=== PATIENT | female | born 1950 | race Caucasian/White ===

== ENCOUNTER → 2017-10-29 | Outpatient (CLI) | payer MEDICARE ==
--- NOTE | 2017-10-30 10:34 | US ---
EXAM DESCRIPTION: Breast,Bilateral: Ultrasound. CLINICAL HISTORY: 67 yearsFemaleBREAST LUMP lateral left breast. Recent weight loss of 70 pounds. COMPARISON: Digital 3-D tomosynthesis diagnostic mammography bilateral breasts on this visit. TECHNIQUE: Transcutaneous scanning of the bilateral breast utilizing two-dimensional and Doppler modes. Scanning performed by the chemist intern and Dr. Groves. FINDINGS: Scanning at the 1200 clock position of the retroareolar right breast shows hypoechoic elongated fatty density material. This is also seen in the right breast at the 1100 clock position 3 cm from the nipple. These masses demonstrate parallel orientation with no significant posterior shadowing features. Margins are not well-defined. Notable when scanning is the increased mobility of this tissue with transducer pressure. These tissues are not hyper vascular. No discrete cyst in the right breast upper outer quadrant. No abnormal solid mass with antiparallel orientation or posterior shadowing. No large calcifications or parenchymal edema. No skin changes. Left breast scanning at the 300 clock position 3 cm from the nipple. Tissue corresponding to skin marker and palpation appears similar to the hypoechoic tissue in the right breast. Partially defined margins, parallel orientation, and mixed posterior acoustic features, with no significant posterior shadowing. As was noted in the right breast, this tissue demonstrates increased mobility with transducer pressure. Tissues are not hypervascular. Similar appearance of tissue in the retroareolar left breast at the 1200 clock position. No discrete cyst or abnormal distinct solid mass with no abnormal posterior shadowing or vascularity in the scanned regions of the left breast. Increased mobility of tissue with transducer pressure. No large calcifications parenchymal edema or skin changes. IMPRESSION: 1. Bi-Rads Category 3: Probably Benign Findings. 2. Please refer to bilateral 3-D tomosynthesis diagnostic mammographic examination and report on this visit. The FINDINGS and the FOLLOW-UP plan were reviewed in person with the patient after the examination. Written communication explaining the IMPRESSION and FOLLOW-UP will be mailed to the patient and referring care provider. Electronically signed by: Jamey Groves MD 10/30/2017 10:33 AM CDT
--- NOTE | 2017-10-30 10:38 | MAM ---
EXAM DESCRIPTION: Diagnostic Mammo,Bilateral: Digital Mammography CLINICAL HISTORY: 67 yearsFemaleBREAST MASS left lateral breast. 70 lb weight loss. Postmenopausal/hysterectomy. No HRT. COMPARISON: Targeted bilateral breast ultrasound following this examination. No prior reports available. TECHNIQUE: Bilateral CC LM MLO projection full-field images, 3-D tomosynthesis digital mammographic technique. Also bilateral synthesized CC MLO LM full-field images. CC and MLO and LM 2-D digital mammograms left breast. CAD utilized on 2-D images. Skin marker on the lateral left breast middle third at the 300 clock position where mass is palpable. FINDINGS: The breast parenchymal density pattern is: Extremely dense breast tissue, which lowers the sensitivity of mammography. No skin thickening or nipple retraction masslike region noted in the retroareolar left breast associated with microcalcifications. Where the skin markers located, is a approximately 2.5 x 2.5 cm mass with similar density as retroareolar tissue both masses are partially well-defined margins. Similar density to the diffuse fibroglandular breast parenchyma in the breast. The denser masslike areas in the right breast are similar to those in the left breast and are located predominantly in the upper outer quadrant and retroareolar right breast and in the anterior and middle third more than the posterior third. Scattered microcalcifications are noted. ULTRASOUND: Scanning at the 1200 clock position of the retroareolar right breast shows hypoechoic elongated fatty density material. This is also seen in the right breast at the 1100 clock position 3 cm from the nipple. These masses demonstrate parallel orientation with no significant posterior shadowing features. Margins are not well-defined. Notable when scanning is the increased mobility of this tissue with transducer pressure. These tissues are not hyper vascular. No discrete cyst in the right breast upper outer quadrant. No abnormal solid mass with antiparallel orientation or posterior shadowing. No large calcifications or parenchymal edema. No skin changes. Left breast scanning at the 300 clock position 3 cm from the nipple. Tissue corresponding to skin marker and palpation appears similar to the hypoechoic tissue in the right breast. Partially defined margins, parallel orientation, and mixed posterior acoustic features, with no significant posterior shadowing. As was noted in the right breast, this tissue demonstrates increased mobility with transducer pressure. Tissues are not hypervascular. Similar appearance of tissue in the retroareolar left breast at the 1200 clock position. Increased mobility of this tissue with transducer pressure. No discrete cyst or abnormal distinct solid mass with abnormal posterior shadowing or vascularity in the scanned regions of the left breast. No large calcifications parenchymal edema or skin changes. Appearance of these tissues bilaterally and increased mobility of the tissues with transducer pressure would suggest these are lipomas.. IMPRESSION: BI-RADS CATEGORY: 3 - PROBABLY BENIGN. Management: Short interval (6-month) follow-up digital mammography, and possibly targeted bilateral breast ultrasound follow-up. The FINDINGS and the FOLLOW-UP plan were reviewed in person with the patient after the examination. Written communication explaining the IMPRESSION and FOLLOW-UP will be mailed to the patient and referring care provider. Electronically signed by: Jamey Groves MD 10/30/2017 10:37 AM CDT
== END | disposition home or self-care (01) ==
LOC: MAMMO 14:48
PROVIDERS: ATTEND Surgery
DX: N63.21 Unspecified lump in the left breast, upper outer quadrant (principal)

== ENCOUNTER → 2018-08-30 | Outpatient (CLI) | payer MEDICARE ==
--- NOTE | 2018-09-02 20:36 | MAM ---
EXAM DESCRIPTION: Diagnostic Mammo,Bilateral: Digital Mammography CLINICAL HISTORY: 67 yearsFemale6 MONTH FOLLOW UP . No complaints. No personal or family history of breast cancer. Childbirth. Premenopausal. No HRT. Lifetime risk of developing breast cancer (Tyrer-Cuzick model) percentage is 4.8. COMPARISON: Bilateral breast ultrasound on this visit.. Bilateral targeted breast ultrasound 10/29/2017. Diagnostic digital breast mammography 10/29/2017.. TECHNIQUE: Bilateral CC LM MLO projection full-field images, digital mammographic tomosynthesis technique. Bilateral 2-D digital full-field MLO images. CAD not utilized. FINDINGS: The breast parenchymal density pattern is: Heterogeneously dense breast tissue, which may obscure small masses. No skin thickening or nipple retraction again noted are scattered microcalcifications in the posterior third of the right breast associated with dense fibroglandular tissues. Similar calcifications in the anterior and retroareolar left breast. Focal asymmetry is again noted in the upper outer quadrant of the mid third and posterior third of the left breast. No new focal, stellate mass or density, focal asymmetry , and no suspicious microcalcifications bilaterally. Ultrasound: Scanning of the right breast 11:00 and 12:00 positions abutting the chest wall showing predominantly fibroglandular tissues with minimal fatty echotexture. Scanning left breast 2:00 and 3:00 positions retroareolar 6 cm from the nipple. No dominant fibroglandular tissues with minimal fatty echotexture. Bilaterally no dominant solid mass or distinct cyst. No parenchymal edema or large calcifications. No overlying skin changes. Normal vascularity. IMPRESSION: Benign exam. BIRAD CATEGORY: 2 BENIGN FINDINGS. RECOMMENDATIONS: FOLLOW UP: Routine digital bilateral mammographic screening, one year interval from August 2018. The FINDINGS and the FOLLOW-UP plan were reviewed in person with the patient after the examination. Written communication explaining the IMPRESSION and FOLLOW-UP will be mailed to the patient and referring care provider. According to the [employer], yearly mammograms are recommended starting at age 40 and continuing as long as a woman is in good health. Any breast change noted on a breast self-exam should be reported promptly to the patient's healthcare provider. Breast MRI is recommended for women with an approximately 20-25% or greater lifetime risk of breast cancer, including women with a strong family history of breast or ovarian cancer and women who have been treated for Hodgkin's disease. A negative mammographic report should not delay tissue diagnosis in patients with significant clinical history or physical findings. Extremely dense breast tissue limits the sensitivity of digital mammography. Electronically signed by: Jamey Groves MD 09/02/2018 8:34 PM [facility]
--- NOTE | 2018-09-02 20:38 | US ---
EXAM DESCRIPTION: Breast,Bilateral: Ultrasound CLINICAL HISTORY: 67 yearsFemaleABNORMAL MAMMO COMPARISON: Digital diagnostic tomosynthesis bilateral breasts on this visit. TECHNIQUE: Transcutaneous scanning of the bilateral breasts utilizing mendoza-scale and Doppler modes. Scanning performed by the cookee ; observation by Dr. Groves. FINDINGS: Scanning of the right breast 11:00 and 12:00 positions abutting the chest wall showing predominantly fibroglandular tissues with minimal fatty echotexture. Scanning left breast 2:00 and 3:00 positions retroareolar 6 cm from the nipple. No dominant fibroglandular tissues with minimal fatty echotexture. Bilaterally no dominant solid mass or distinct cyst. No parenchymal edema or large calcifications. No overlying skin changes. Normal vascularity. IMPRESSION: 1. Bi-Rads Category 2: Benign. 2. Please refer to bilateral diagnostic digital breast tomosynthesis examination and report on this visit. The FINDINGS and the FOLLOW-UP plan were reviewed in person with the patient after the examination. Written communication explaining the IMPRESSION and FOLLOW-UP will be mailed to the patient and referring care provider. Electronically signed by: Jamey Groves MD 09/02/2018 8:36 PM [facility]
== END ==
LOC: MAMMO 10:00
PROVIDERS: ATTEND Surgery
DX: N63.20 Unspecified lump in the left breast, unspecified quadrant (principal)

== ENCOUNTER → 2018-11-26 | Outpatient (CLI) | payer MEDICARE ==
--- NOTE | 2018-11-26 15:51 | MRI ---
EXAM DESCRIPTION: Lumbar Spine w/wo Contrast: Magnetic Resonance Imaging. CLINICAL HISTORY: RADICULOPATHY COMPARISON: None Available. TECHNIQUE: Multiplanar, MRI, multiple standard sequences, without and with standard dose Gadolinium IV contrast, lumbar spine. No adverse reactions. FINDINGS: L5-S1: Disc desiccation and moderate disc space loss more to the left of midline with Modic type III endplate reactive changes. Disc spur complex encroaching on the left foramen and exiting left L5 nerve. Posterior disc osteophyte bulge in the canal and bilateral hypertrophic facet arthrosis and flavum ligament thickening more on the left but no significant canal narrowing. Right posterior disc bulge narrowing the subarticular recess. Moderate to severe right foraminal narrowing. L4-L5: Disc desiccation and moderate disc space loss diffusely with endplate erosions. Anterior disc bulge with endplate ridging. Moderate bilateral facet hypertrophic arthrosis and flavum ligament thickening encroaching on the thecal sac with AP canal diameter 8 mm. Impingement of the transverse canal. Modic type I endplate reactive changes to the left of midline and disc osteophyte complex causing severe left foraminal stenosis. Partial effacement of the left subarticular recess. Moderate right foraminal narrowing. L3-L4: Disc desiccation and moderate disc space loss more severe to the midline and right of midline with endplate erosions. Grade 1 anterolisthesis 3 mm with posterior disc osteophyte bulge encroaching on the thecal sac and effacing the left subarticular recess. Moderate to severe bilateral facet hypertrophic arthrosis and thicken flavum ligaments. AP canal diameter 5 mm. Mild to moderate foraminal narrowing; right side disc osteophyte complex causing severe right foraminal stenosis. L2-L3: Disc desiccation with moderate to severe narrowing in the midline and to the right of midline. Minimal posterior disc bulge with bilateral hypertrophic facet arthrosis and thickened flavum ligaments more on the right. Minimal narrowing of the right subarticular recess. Mild left foraminal narrowing. Disc osteophyte complex on the right creating moderate right foraminal stenosis. Enhancement of the disc remnant posterior. L1-L2: Moderate to severe disc space loss and disc desiccation. Anterior bulging and endplate ridging. Small superior endplate Schmorl's node. Posterior broad-based bulge. Small disc osteophyte complex on the right causing moderate foraminal stenosis. Moderate left foraminal narrowing. Mild to moderate bilateral hypertrophic facet arthrosis and thickening of the flavum ligaments. Minimal narrowing of the right subarticular recess. Moderate canal narrowing. Enhancement of the posterior endplates. T12-L1: Minimal Disc desiccation and mild disc space loss. 2 millimeters grade 1 anterolisthesis. Posterior disc bulge. Moderate to severe foraminal narrowing bilaterally. Bilateral facet arthrosis. Conus Terminates at L1. Enhancing posterior T12 Schmorl's node. Moderate L1-L4 levoscoliosis. Geographic lesion in the L3 vertebral body hyperintense with T2 and STIR images no definite enhancement. Probable atypical hemangioma. Vertebral bodies are not compressed at any level. Otherwise normal marrow signal in the vertebral bodies and the posterior elements. No other abnormal Contrast enhancement in the vertebral column or canal. Paravertebral soft tissues muscle atrophy.Perivertebral contrast enhancement on the right abutting the L2 vertebral body. IMPRESSION: 1. Advanced spondylosis on the left at L5-S1 with disc spur complex encroaching on the left foramen and left L5 nerve root compromise. Moderate to severe right foraminal narrowing. Canal patent. 2. Multifactorial mild to moderate L4-5 central canal stenosis and left side spondylosis causing severe stenosis encroaching on the left L4 nerve. 3. Severe multifactorial canal stenosis at L3-4 and right spondylosis creating severe right foraminal stenosis encroaching on the right L3 nerve. Effacement of the left subarticular recess with possible compromise of the left L4 nerve. 4. Right side spondylosis at L2-3 causing moderate right foraminal stenosis and possible compromise of the right L2 nerve. 5. Right side spondylosis at L1-L2 right foraminal stenosis and encroachment on the right L1 nerve. 6. 2 mm grade 1 anterolisthesis at T12-L1 moderate to severe foraminal narrowing bilaterally. Electronically signed by: Jamey Groves MD 11/26/2018 3:49 PM CDT
== END ==
LOC: MRI 08:31
PROVIDERS: ATTEND Electrodiagnostic Medicine
DX: M47.27 Other spondylosis with radiculopathy, lumbosacral region (principal); M48.062 Spinal stenosis, lumbar region with neurogenic claudication; M43.16 Spondylolisthesis, lumbar region

== ENCOUNTER → 2019-04-19 | Outpatient (CLI) | payer MEDICARE ==
--- NOTE | 2019-04-20 15:03 | MRI ---
EXAM DESCRIPTION: Cervical Spine: MRI. CLINICAL HISTORY: 68 years Female CERVICAL MYELOPATHY COMPARISON: None. TECHNIQUE: Multiplanar, high-field MRI, multiple sequences, non-contrast Cervical spine. FINDINGS: C3-C4: Disc desiccation and 1 mm anterolisthesis. Disc space maintained. Bony neural foramina are patent with bilateral vertebral arteries demonstrating posterior loop bilaterally, coursing into the neuroforamina contributing to narrowing, and abutting the bilateral C4 nerves. Minimal hypertrophic arthrosis bilateral facets, more on the right. Mild canal narrowing. C5-C6: Normal signal in the disc and disc space maintained. Trace anterolisthesis. Posterior elements unremarkable. Canal and foramina are patent. Normal signal in the remaining discs with no bulging. Disc spaces preserved. Canal and neural foramina are patent. Facet joints unremarkable. Spinal alignment reduced cervical lordosis.. No cord compression or cord edema. Atlantoaxial joint minimal hypertrophy.. Base of the cerebellar tonsils is just above the foramen magnum. Paravertebral soft tissues unremarkable. 1 cm left thyroid solid nodule or cyst.. Vertebral bodies are not compressed at any level. Normal marrow signal in the remaining vertebral bodies and the posterior elements. IMPRESSION: 1. Trace anterolisthesis C3-C4. Mild disc desiccation. No canal stenosis. Bilateral vertebral arteries loop into the bilateral neural foramina at this level and are abutting the bilateral C4 nerve roots. Mild bilateral facet arthrosis. 2. Trace anterolisthesis C5-C6 with normal disc and posterior elements. No canal or foraminal stenosis. 3.1.0 cm incidental thyroid nodule. [facility] Best Practice recommendations: No follow-up imaging is recommended. Reference: J Am Jessica Radiol. 2015 Aug;12(2): 143-50 Electronically signed by: Jamey Groves MD 04/20/2019 3:02 PM CDT
== END ==
LOC: MRI 10:35
PROVIDERS: ATTEND Anesthesiology Pain Medicine
DX: M50.00 Cervical disc disorder with myelopathy, unspecified cervical region (principal); M50.31 Other cervical disc degeneration, high cervical region; M47.892 Other spondylosis, cervical region; M43.12 Spondylolisthesis, cervical region; E04.1 Nontoxic single thyroid nodule

== ENCOUNTER 2020-05-10 05:36 | Day surgery (SDC) | payer MEDICARE ==
[2020-05-10] MEDS ORDERED: LACTATED RINGERS 1,000 ML ONE (06:40)
[2020-05-10] MEDS ORDERED: LIDOCAINE 1% 10 ML VIAL INJ ONE (07:00)
[2020-05-10] MEDS ORDERED: PROPOFOL 200 MG/20 ML VIAL IV ONE (07:00)
[2020-05-10] MEDS ORDERED: PHENYLEPHRINE INJ 1ML 10 MG/ML VIAL ONE (07:00)
--- NOTE | 2020-05-10 11:39 | OP ---
DATE OF PROCEDURE: 05/10/20 PREOPERATIVE DIAGNOSIS: 1. Screening colonoscopy, over 10 years since last colonoscopy. POSTOPERATIVE DIAGNOSIS: 1. Colonic polyps. PROCEDURE: 1. Colonoscopy with polyp forceps excision x5. SURGEON: Jesus Alberto Ye MD ANESTHESIA: General. FINDINGS: There were polyps at 20 cm, 15 cm and 10 cm, likely hyperplastic appearing. Otherwise, normal exam. COMPLICATIONS: None. PLAN: Discharge. INDICATION: As stated. PROCEDURE: General anesthesia was induced in the lateral position. Digital rectal exam was normal. The colonoscope was inserted without difficulty. A few polyps were noted in the rectum. As we continued, there was some minor looping and to get into the cecum, we placed the patient on her back and we were able to successfully get to the cecum as identified by the appendiceal orifice and ileocecal valve. Upon withdrawal, there was an adequate prep. Some irrigation was necessary, but the colon surfaces appeared normal. No polyps were encountered until about 20 to 25 cm where 2 polyps were excised and then at least 4 to 5 hyperplastic appearing polyps at around 10 to 15 cm were excised. Otherwise, anal canal was normal. Small hemorrhoids. The patient tolerated the procedure and was awakened and taken to Recovery to be discharged. #[id number] cc: Jamey Velasquez MD [facility]
[2020-05-10 12:02] VITALS: BP 154/75; TEMP 96.6; O2SAT 96
== END 2020-05-10 11:45 | disposition home or self-care (01) ==
LOC: AMB 05:36
PROVIDERS: ATTEND Surgery
DX: Z12.11 Encounter for screening for malignant neoplasm of colon (principal); K63.5 Polyp of colon; K62.1 Rectal polyp; K64.9 Unspecified hemorrhoids; I10 Essential (primary) hypertension; J44.9 Chronic obstructive pulmonary disease, unspecified; K59.00 Constipation, unspecified; F32.9 Major depressive disorder, single episode, unspecified; K21.9 Gastro-esophageal reflux disease without esophagitis; Z87.891 Personal history of nicotine dependence; Z88.5 Allergy status to narcotic agent; Z90.710 Acquired absence of both cervix and uterus; Z79.899 Other long term (current) drug therapy
CPT/HCPCS: 00812; 45380; J3490; J7120